=== PATIENT | female | born 1955 | race Caucasian/White ===

== ENCOUNTER 2020-10-06 08:44 | Emergency (ER) | payer BC, OTHER ==
[2020-10-06] MEDS ORDERED: Sodium Chloride 0.9% 2.5 ML Syringe FLUSH PRN (09:05)
[2020-10-06] MEDS ORDERED: Sodium Chloride 0.9% 10 ML Syringe FLUSH PRN (09:05)
--- NOTE | 2020-10-06 09:11 | EDM.PDOC ---
ED HPI GENERAL MEDICAL PROBLEM - General Chief Complaint: Syncope Stated Complaint: EMS ARRIVAL Time Seen by Provider: 10/06/20 08:48 - History of Present Illness INITIAL COMMENTS - FREE TEXT/NARRATIVE: 65-year-old female history of hypothyroidism history of bipolar disorder who is presenting with syncope. Patient initially stated that she had been in her normal state of health for the last few days. Later on she did state that she felt like maybe she was coming down with a chest cold yesterday and took some extra vitamin D in the evening. She woke up this morning feeling relatively normal but had to go to the bathroom. She walked upstairs to use the bathroom and will waiting for the bathroom she felt briefly lightheaded and then woke up on the ground. No headache either before or after no chest pain palpitations or shortness of breath either before or after. No nausea no vomiting no fevers no chills no cough no other symptoms. Patient states that she feels normal right now. She notes that when she was around 51 in the setting of needing to have hyperparathyroidism surgery she had a tachycardia that required ablation. She has no other history of heart problems or arrhythmia. No exacerbating or alleviating factors radiation or other associated symptoms. - Related Data Allergies Allergy/AdvReac Type Severity Reaction Status Date / Time coconut Allergy Other Verified 10/06/20 09:10 flaxseed Allergy Other Verified 10/06/20 09:10 oats Allergy Other Verified 10/06/20 09:10 Penicillins Allergy Other Verified 10/06/20 09:10 pork derived (porcine) Allergy Other Verified 10/06/20 09:10 strawberry Allergy Other Verified 10/06/20 09:10 Sulfa (Sulfonamide Allergy Other Verified 10/06/20 09:10 Antibiotics) Home Meds: Home Meds Levothyroxine Sodium [Synthroid] 75 mcg PO DAILY 10/06/20 [History] OXcarbazepine [Trileptal] 150 mg PO DAILY 10/06/20 [History] Venlafaxine [Effexor] 25 mg PO DAILY 10/06/20 [History] amLODIPine [Norvasc] 2.5 mg PO DAILY 10/06/20 [History] Past Medical History HEENT History: Reports: None Cardiovascular History: Reports: Hypertension Respiratory History: Reports: None Gastrointestinal History: Reports: None Genitourinary History: Reports: None Psychiatric History: Reports: Bipolar, Depression - Infectious Disease History Infectious Disease History: Reports: Chicken Pox, Measles, Mumps Social & Family History - Tobacco Use Tobacco Use Status *Q: Never Tobacco User - Caffeine Use Caffeine Use: Reports: None - Recreational Drug Use Recreational Drug Use: No ED ROS GENERAL - Review of Systems Review Of Systems: See Below Free Text/Narrative/Comment: General: No fever. Skin: No rash. Eyes: No vision problems. ENT: No sore throat. Neck: No neck stiffness. Respiratory: No shortness of breath. Cardiac: No chest pain. Gastrointestinal: No nausea, vomiting or abdominal pain. Urinary: No dysuria. Musculoskeletal: No myalgias/arthralgias. Neurologic: No headache. ED EXAM, GENERAL - Physical Exam Exam: See Below Free Text/Narrative:: General Appearance: No acute distress, appears comfortable Skin: No rash HEENT: Normocephalic/atraumatic, sclera anicteric, mucous membranes moist Neck: Normal range of motion Chest and Lungs: Bilateral breath sounds, clear to auscultation Cardiovascular: Regular rate and rhythm, no murmur Abdomen: Soft, non-tender Back: Normal Musculoskeletal: No edema or tenderness Neurologic: Awake, alert, no obvious deficits, moving all extremities Psychiatric: Appropriate, cooperative #1 Interpretation EKG Date: 10/06/20 Time: 09:09 EKG Interpretation Comments: Sinus rhythm with a rate of 75 prolonged [place] interval at 311 suggesting an AV conduction delay. There is a potential U wave that is noted in lead II and aVF though it is not consistent QRS duration is normal QTC is 464 no signs of ischemia T wave morphology appears relatively unremarkable. #2 Interpretation EKG Date: 10/06/20 Time: 09:56 EKG Interpretation Comments: Sinus rhythm rate of 74 prolonged W[place] interval at 305 otherwise unremarkable EKG no sign of U waves or any other abnormality. Course - Vital Signs Last Recorded V/S: Last Vital Signs Temp 97.6 F 10/06/20 08:55 Pulse 77 10/06/20 09:38 Resp 16 10/06/20 09:38 BP 114/62 10/06/20 09:38 Pulse Ox 96 10/06/20 09:38 - Orders/Labs/Meds Orders: Active Orders 24 hr Category Date Time Status EKG 12 Lead [EKG Documentation Completion] [RC] STAT Care 10/06/20 09:52 Active Sodium Chloride 0.9% [Saline Flush] Med 10/06/20 09:05 Active 10 ml FLUSH ASDIRECTED PRN Sodium Chloride 0.9% [Saline Flush] Med 10/06/20 09:05 Active 2.5 ml FLUSH ASDIRECTED PRN Saline Lock Insert [OM.PC] Stat Oth 10/06/20 09:05 Ordered Medication Orders Sodium Chloride (Sodium Chloride 0.9% 10 Ml Syringe) 10 ml FLUSH ASDIRECTED PRN PRN Reason: Keep Vein Open Last Admin: 10/06/20 09:37 Dose: 10 ml Documented by: LES Sodium Chloride (Sodium Chloride 0.9% 2.5 Ml Syringe) 2.5 ml FLUSH ASDIRECTED PRN PRN Reason: Keep Vein Open Last Admin: 10/06/20 09:37 Dose: 2.5 ml Documented by: [id number] Labs: Laboratory Tests 10/06/20 10/06/20 Range/Units 08:52 08:52 WBC 4.29 (4.0-11.0) K/uL RBC 3.64 L (4.30-5.90) M/uL Hgb 11.5 L (12.0-16.0) g/dL Hct 35.8 L (36.0-46.0) % MCV 98.4 H (80.0-98.0) fL MCH 31.6 (27.0-32.0) pg MCHC 32.1 (31.0-37.0) g/dL RDW Std Deviation 51.8 (28.0-62.0) fl RDW Coeff of Silvio 14 (11.0-15.0) % Plt Count 227 (150-400) K/uL MPV 10.00 (7.40-12.00) fL Neut % (Auto) 80.6 H (48.0-80.0) % Lymph % (Auto) 8.9 L (16.0-40.0) % [place] % (Auto) 9.1 (0.0-15.0) % Eos % (Auto) 1.4 (0.0-7.0) % Baso % (Auto) 0.0 (0.0-1.5) % Neut # (Auto) 3.5 (1.4-5.7) K/uL Lymph # (Auto) 0.4 L (0.6-2.4) K/uL [place] # (Auto) 0.4 (0.0-0.8) K/uL Eos # (Auto) 0.1 (0.0-0.7) K/uL Baso # (Auto) 0.0 (0.0-0.1) K/uL Nucleated RBC % 0.0 /100WBC Nucleated RBCs # 0 K/uL Sodium 145 (136-145) mmol/L Potassium 3.8 (3.5-5.1) mmol/L Chloride 110 H (98-107) mmol/L Carbon Dioxide 23.0 (21.0-32.0) mmol/L BUN 19 H (7.0-18.0) mg/dL Creatinine 1.6 H (0.6-1.0) mg/dL Est Cr Clr Drug Dosing 31.96 mL/min Estimated GFR (MDRD) 32.5 ml/min Glucose 177 H (74-106) mg/dL Calcium 8.6 (8.5-10.1) mg/dL Magnesium 2.1 (1.8-2.4) mg/dL Total Bilirubin 0.1 L (0.2-1.0) mg/dL AST 50 H (15-37) IU/L ALT 71 H (14-63) IU/L Alkaline Phosphatase 138 H (46-116) U/L Troponin I < 0.050 (0.000-0.056) ng/mL Total Protein 7.2 (6.4-8.2) g/dL Albumin 3.4 (3.4-5.0) g/dL Globulin 3.8 (2.6-4.0) g/dL Albumin/Globulin Ratio 0.9 (0.9-1.6) TSH 3rd Generation 2.33 (0.36-3.74) uIU/mL Meds: Medications Generic Name Dose Route Start Last Admin Trade Name Freq PRN Reason Stop Dose Admin Sodium Chloride 10 ml 10/06/20 09:05 10/06/20 09:37 Sodium Chloride 0.9% 10 Ml Syringe FLUSH 10 ml ASDIRECTED PRN Administration Keep Vein Open Sodium Chloride 2.5 ml 10/06/20 09:05 10/06/20 09:37 Sodium Chloride 0.9% 2.5 Ml Syringe FLUSH 2.5 ml ASDIRECTED PRN Administration Keep Vein Open Departure - Departure Time of Disposition: 10:36 Disposition: Home, Self-Care 01 Condition: Good Clinical Impression: Syncope - Discharge Information *PRESCRIPTION DRUG MONITORING PROGRAM REVIEWED*: Not Applicable *COPY OF PRESCRIPTION DRUG MONITORING REPORT IN PATIENT [place]: Not Applicable Instructions: Syncope Forms: ED Department Discharge Additional Instructions: Your labs today showed good electrolytes and no sign of heart attack or heart failure. You did have mild abnormalities in your kidney function and a mildly low blood counts but as we discussed this is a known problem for you. I suspect you likely passed out today from some mild dehydration and walking to go the bathroom early in the morning. Your EKG did not show any signs of abnormal heart rhythms. However, is important that you follow-up with your primary care doctor to see if you require a Holter monitor which is a heart monitor that you can wear for 1 or more days to continuously monitor your heart. If you have any recurrence of passing out severe chest pain or severe shortness of breath please return to the ER or go to the nearest hospital. Otherwise please follow- up with your primary care doctor. The following information is given to patients seen in the emergency department who are being discharged to home. This information is to outline your options for follow-up care. We provide all patients seen in our emergency department with a follow-up referral. The need for follow-up, as well as the timing and circumstances, are variable depending upon the specifics of your emergency department visit. If you don't have a primary care physician on staff, we will provide you with a referral. We always advise you to contact your personal physician following an emergency department visit to inform them of the circumstance of the visit and for follow-up with them and/or the need for any referrals to a consulting specialist. The emergency department will also refer you to a specialist when appropriate. This referral assures that you have the opportunity for follow-up care with a specialist. All of these measure are taken in an effort to provide you with optimal care, which includes your follow-up. Under all circumstances we always encourage you to contact your private physician who remains a resource for coordinating your care. When calling for follow-up care, please make the office aware that this follow-up is from your recent emergency room visit. If for any reason you are refused follow-up, please contact the [facility] Emergency Department at and asked to speak to the emergency department charge nurse. Sepsis Event Note (ED) - Evaluation Sepsis Screening Result: No Definite Risk - Focused Exam Vital Signs: Vital Signs Temp Pulse Resp BP Pulse Ox 10/06/20 09:38 77 16 114/62 96 10/06/20 08:55 97.6 F 76 18 122/66 98 - My Orders Last 24 Hours: My Active Orders 10/06/20 09:05 Sodium Chloride 0.9% [Saline Flush] 10 ml FLUSH ASDIRECTED PRN Sodium Chloride 0.9% [Saline Flush] 2.5 ml FLUSH ASDIRECTED PRN Saline Lock Insert [OM.PC] Stat 10/06/20 09:52 EKG 12 Lead [EKG Documentation Completion] [RC] STAT - Assessment/Plan Last 24 Hours: My Active Orders 10/06/20 09:05 Sodium Chloride 0.9% [Saline Flush] 10 ml FLUSH ASDIRECTED PRN Sodium Chloride 0.9% [Saline Flush] 2.5 ml FLUSH ASDIRECTED PRN Saline Lock Insert [OM.PC] Stat 10/06/20 09:52 EKG 12 Lead [EKG Documentation Completion] [RC] STAT Assessment:: 65-year-old female presenting with syncope with brief prodrome of lightheadedness. No red flag symptoms such as shortness of breath chest pain palpitations or headache. Nothing suggest subarachnoid hemorrhage. No indicati on for CT scan of the brain at this time her neurologic exam is unremarkable. Arrhythmia is a consideration electrolyte abnormality is a consideration ACS is felt much less likely. No chest pain shortness of breath tachycardia or hypoxia that would suggest pulmonary embolism. Thyroid dysfunction is a consideration but patient has no background of hypothyroid symptoms. Labs are pending as is chest x-ray. Will repeat EKG in 20 to 30 minutes and observe on telemetry. 1025: Patient's labs show a mild renal insufficiency and a mild anemia. Patient states that these abnormalities are known and have been attributed to medications that she has been on in the past. Patient feels well at this time. No events on telemetry no episodes of chest pain palpitations or shortness of breath. Patient feels thirsty but otherwise well. Given this and reassuring work-up here in normal EKG on repeat patient felt safe for discharge as long as she passes an ambulatory trial. We discussed the importance of following up with her primary care doctor for consideration for Holter monitoring. 1036: Patient ambulates well with a steady gait no recurrence of symptoms. Patient felt safe for discharge as above.
[2020-10-06 09:29] LABS: BLOOD UREA NITROGEN,BUN 19 mg/dL (7.0-18.0); CHLORIDE,CL 110 mmol/L (98-107); GLUCOSE RANDOM 177 mg/dL (74-106); POTASSIUM,K 3.8 mmol/L (3.5-5.1); SODIUM,NA 145 mmol/L (136-145)
--- NOTE | 2020-10-06 09:38 | CR ---
Clinical indication : Syncope. FINDINGS: The cardiomediastinal silhouette, lung parenchyma, pulmonary vasculature and pleural surfaces are all normal in appearance. The bony thorax appears intact. IMPRESSION: Negative study. Dictated by Isidro Armando MD @ Oct 06 2020 9:31AM Signed by Dr. Isidro Armando @ Oct 06 2020 9:37AM
== END 2020-10-06 10:52 | disposition home or self-care (01) ==
LOC: MW.ED 08:44
DX: R55 Syncope and collapse (principal); I10 Essential (primary) hypertension; E03.9 Hypothyroidism, unspecified; Z91.018 Allergy to other foods; Z88.0 Allergy status to penicillin; Z88.2 Allergy status to sulfonamides; Z79.899 Other long term (current) drug therapy
CPT/HCPCS: 36415; 71045; 71045-26; 80053; 83735; 84443; 84484; 85025; 93005; 93010; 99284; 99285-25